=== PATIENT | female | born 1980 | race American Indian/Alaskan Native ===

== ENCOUNTER 2020-11-16 06:41 | Inpatient (IN) | payer MEDICAID ==
[2020-11-16] MEDS ORDERED: HYDROcodone/ACETAMINOPHEN 10-325MG TAB PO ONE (08:19)
[2020-11-16] MEDS ORDERED: IBUPROFEN 600 MG TAB PO ONE (08:19)
--- NOTE | 2020-11-16 08:23 | Emergency Department Report ---
ED Lower Extremity HPI - General Chief Complaint: Extremity Injury, Lower Stated Complaint: RT KNEE PAIN Time Seen by Provider: 11/16/20 08:13 Source: patient Mode of arrival: Ambulatory Limitations: No Limitations - History of Present Illness Initial Comments: 40-year-old female presents to the ER today with complaints of right knee pain and injury. Patient states that she was standing up on a ladder, about 8 feet when she jumped from that height onto the ground. She states that when she landed she felt a sudden pop in her right knee. She states this occurred around 615 this morning. She states that since then she has been having severe pain to the right knee with swelling, some bruising, and inability to bear weight or ambulate secondary to the pain in the knee. She has not taken anything for the pain since the injury occurred. She denies any prior surgery or injury to her knee in the past. She reports no additional symptoms at this time. MD Complaint: knee injury -: Sudden, This morning - Related Data Allergies Allergy/AdvReac Type Severity Reaction Status Date / Time Penicillins AdvReac Swelling Verified 11/16/20 08:06 ED Review of Systems ROS: Stated complaint: RT KNEE PAIN Other details as noted in HPI Comment: All other systems reviewed and negative Constitutional: denies: chills, fever Eyes: denies: eye pain, eye discharge, vision change ENT: denies: ear pain, throat pain Respiratory: denies: cough, shortness of breath, SOB with exertion, SOB at rest, wheezing Cardiovascular: denies: chest pain, palpitations, dyspnea on exertion, edema, syncope, paroxysmal nocturnal dyspnea Gastrointestinal: denies: abdominal pain, nausea, diarrhea, constipation, hematemesis, melena, hematochezia Genitourinary: denies: urgency, dysuria, frequency, hematuria, discharge Musculoskeletal: joint swelling, arthralgia Skin: denies: rash, lesions, change in color, change in hair/nails, pruritus Neurological: abnormal gait. denies: headache, weakness, paresthesias Psychiatric: denies: anxiety, depression, auditory hallucinations, visual hallucinations, homicidal thoughts, suicidal thoughts Hematological/Lymphatic: denies: easy bleeding, easy bruising, swollen glands ED Physical Exam - General Limitations: No Limitations General appearance: alert, in distress (secondary to pain) - Head Head exam: Present: atraumatic, normocephalic, normal inspection - Eye Eye exam: Present: normal appearance, PERRL, EOMI Pupils: Present: normal accommodation - Respiratory Respiratory exam: Absent: respiratory distress - Cardiovascular Cardiovascular Exam: Present: regular rate - Extremities Exam Extremities exam: Present: other (palpable dorsalis pedis pulse right foot. Cap refill nl, No apparent lower leg swelling, or tenderness, no skin pallor or difference in temperature when compared to the left leg) - Expanded Lower Extremity Exam Right Knee exam: Present: tenderness (severe lateral/anterior/medial ), swelling, ecchymosis (mild ), deformity, effusion, pain w/ pronation/supination, pain/laxity with valgus, pain/laxity with varus. Absent: full ROM, full knee extension Neuro vascular tendon exam: Present: no vascular compromise. Absent: abnormal cap refill, motor deficit, sensory deficit, extremity cold to touch, pallor Gait: Positive: not tested/not observed (due to patient severe pain in knee ) - Neurological Exam Neurological exam: Present: alert, oriented X3, CN II-XII intact - Psychiatric Psychiatric exam: Present: normal affect, normal mood - Skin Skin exam: Present: intact ED Course Vital Signs 11/16/20 08:09 Temperature 98.7 F Pulse Rate 81 Respiratory 16 Rate Blood Pressure 138/90 O2 Sat by Pulse 100 Oximetry ED Lower Extremity MDM - Radiology Data Radiology results: report reviewed Patient: CARRINGTON WYATT MR#: [id number] : 1980 Acct:[id number] Age/Sex: 40 / F ADM Date: 11/16/20 Loc: ED Attending Dr: Ordering Physician: SULEMAN BEYER Date of Service: 11/16/20 Procedure(s): XR knee 4+V RT Accession Number(s): [id number] cc: SULEMAN BEYER Fluoro Time In Minutes: Right knee 4 views INDICATION: Injury FINDINGS: There is a comminuted displaced intra-articular fracture within the right proximal tibia. The fracture extends to the metaphysis towards the tibial spine with extension into the joint space. The fracture extends both anteriorly and posteriorly within the proximal tibial metaphysis. Joint effusion is noted. Signer Name: Dannie Vail MD Signed: 11/16/2020 9:01 AM Workstation Name: [email or web address] Transcribed By: CHRISTY Dictated By: MANUEL VAIL MD Electronically Authenticated By: MANUEL VAIL MD Signed Date/Time: 11/16/20900 DD/ 9 TD/TT: - Medical Decision Making 1000: After discussion with Dr Keshia Mina, and Dr Harris, patient will be admitted under hospitalist service and Dr. Harris will consult on patient for surgery. See Dr Mina note for details. Discussed x-ray results, diagnosis and reason for admission with patient. Patient expressed understanding and agree with plan. Patient currently stable. Critical care attestation.: If time is entered above; I have spent that time in minutes in the direct care of this critically ill patient, excluding procedure time. ED Disposition Clinical Impression: Tibial fracture, Internal derangement of knee joint Disposition: 04 [facility]ILITY Is pt being admited?: Yes Condition: Stable
--- NOTE | 2020-11-16 09:05 | XRay Report ---
Right knee 4 views INDICATION: Injury FINDINGS: There is a comminuted displaced intra-articular fracture within the right proximal tibia. T he fracture extends to the metaphysis towards the tibial spine with extension into the joint space. T he fracture extends both anteriorly and posteriorly within the proximal tibial metaphysis. Joint effu adele is noted. Signer Name: Dannie Vail MD Signed: 11/16/2020 9:01 AM Workstation Name: [id number]
[2020-11-16] MEDS ORDERED: ONDANSETRON 4 MG/2 ML INJ IV ONE (10:24)
[2020-11-16] MEDS ORDERED: MORPHINE 4 MG/1 ML INJ IV ONE (10:24)
--- NOTE | 2020-11-16 10:25 | Event Note ---
Face to Face: For this encounter I have reviewed the PA/GRINDING MACHINE OPERATOR documentation, treatment plan, medical decision making, and I had face to face time with this patient. I evaluated patient. Patient has 2+ DP PT pulse in the right lower extremity. She has significant swelling of the knee especially proximal upper leg inferior portion of the knee. I informed her plan of care. Spoke with Dr. Harris who recommended admission. He plans to operate on the knee tomorrow. Spoke with hospitalist physician who accepted patient. Right closed tibial plateau fracture, I suspect ligamentous derangement disruption extremity neurovascular intact
[2020-11-16 11:43] LABS: Alanine Aminotransferase 11 units/L (7-56); Albumin 4.4 g/dL (3.9-5); Blood Urea Nitrogen 13 mg/dL (7-17); Calcium 8.9 mg/dL (8.4-10.2); Hemolysis Index 10
[2020-11-16 11:46] LABS: BUN/Creatinine Ratio 22
--- NOTE | 2020-11-16 11:55 | Cat Scan Report ---
CT lower extremity RT wo con INDICATION / CLINICAL INFORMATION: Severe knee injury derangement tibial plateau fx. TECHNIQUE: CT images of the right knee obtained without intravenous contrast. All CT scans at this location are performed using CT dose reduction for ALARA by means of automated exposure control. COMPARISON: Same-day radiograph. FINDINGS: BONES/JOINT(S): There is an acute comminuted fracture of the right proximal tibia with comminuted imp action fracture of the lateral tibial plateau. There is 5 mm of intra-articular step-off at the poste rior lateral tibial plateau. Comment a fracture involvement of the lateral tibial spine with oblique fracture extension into the medial tibial metaphysis. There is nondisplaced fracture extension throug h the proximal tibial diaphysis. There is nondisplaced fracture involvement of the nonweightbearing p ortion of the anterior medial tibia, though no discrete fracture involvement of the weightbearing nidia face of the medial tibial plateau. Acute mildly displaced, minimally comminuted fracture of the poste rior proximal fibula. The proximal tibiofibular joint is intact. No joint malalignment. Large lipohem arthrosis. MUSCLES / TENDONS: No significant abnormality. SOFT TISSUES: No significant abnormality. IMPRESSION: 1. Acute comminuted displaced intra-articular fracture of the right proximal tibia, as above. 2. Acute mildly displaced proximal fibular fracture. Signer Name: Toby Dominguez MD Signed: 11/16/2020 11:50 AM Workstation Name: [id number]
[2020-11-16] MEDS ORDERED: ONDANSETRON 4 MG/2 ML INJ IV PRN (12:00)
[2020-11-16] MEDS ORDERED: ACETAMINOPHEN 325 MG TAB PO PRN (12:00)
[2020-11-16 12:12] LABS: Basophils # (Auto) 0.1 K/mm3 (0.0-0.1); Basophils % (Auto) 0.9 % (0.0-1.8); Eosinophils # (Auto) 0.4 K/mm3 (0.0-0.4); Eosinophils % (Auto) 3.9 % (0.0-4.3); Hemoglobin 9.3 gm/dl (10.1-14.3); Lymphocytes # (Auto) 1.4 K/mm3 (1.2-5.4); Lymphocytes % (Auto) 13.4 % (13.4-35.0); Mean Corpuscular HGB Conc 31 % (30-34); Monocytes # (Auto) 0.6 K/mm3 (0.0-0.8); Monocytes % (Auto) 5.4 % (0.0-7.3); Platelet Count 463 K/mm3 (140-440); Red Blood Count 4.39 M/mm3 (3.65-5.03); Red Cell Distribution Width 18.2 % (13.2-15.2)
[2020-11-16 12:18] LABS: Mean Corpuscular Volume 68 fl (79-97)
[2020-11-16 12:25] LABS: INR 0.91 (0.87-1.13)
[2020-11-16 12:26] LABS: Partial Thromboplastin Time 27.5 Sec. (24.2-36.6)
--- NOTE | 2020-11-16 13:30 | History and Physical Report ---
History of Present Illness Date of examination: 11/16/20 Date of admission: 11/16/20 10:02 Chief complaint: Right leg pain and swelling History of present illness: Patient is a 40-year-old female with no significant past medical history who presented with leg swelling and pain after fall from a ladder. She reports standing on a ladder and purposely jumping down. She landed on her feet and felt a popping sensation in her right leg. She reports pain with moving and bearing weight on the right lower extremity. X-ray of the right lower extremity showed a comminuted displaced right proximal tibia fracture. CT scan of the same extremity showed an additional mildly displaced proximal fibular fracture. Orthopedic surgery was consulted in the ED. Patient was admitted to medicine service, with plan for surgical intervention in the morning. Past History Past Medical History: No medical history Past Surgical History: Other (Back surgery) Social history: smoking (Half pack of cigarettes per day) Family history: no significant family history Medications and Allergies Allergies Allergy/AdvReac Type Severity Reaction Status Date / Time Penicillins AdvReac Swelling Verified 11/16/20 08:06 Home Medications Medication Instructions Recorded Confirmed Last Taken Type No Known Home Medications [No 11/16/20 11/16/20 Unknown History Reported Home Medications] Active Meds: Active Medications Acetaminophen (Acetaminophen 325 Mg Tab) 650 mg PO Q4H PRN PRN Reason: Pain MILD(1-3)/Fever >100.5/LAU Heparin Sodium (Porcine) (Heparin 5,000 Unit/1 Ml Vial) 5,000 unit SUB-Q Q8HR HARRY Hydromorphone HCl (Hydromorphone 1 Mg/1 Ml Inj) 0.5 mg IV Q3H PRN PRN Reason: Pain , Severe (7-10) Ondansetron HCl (Ondansetron 4 Mg/2 Ml Inj) 4 mg IV Q8H PRN PRN Reason: Nausea And Vomiting Oxycodone/Acetaminophen (Oxycodone /Acetaminophen 5-325mg Tab) 1 tab PO Q6H PRN PRN Reason: Pain, Moderate (4-6) Sodium Chloride (Sodium Chloride 0.9% 10 Ml Flush Syringe) 10 ml IV BID HARRY Sodium Chloride (Sodium Chloride 0.9% 10 Ml Flush Syringe) 10 ml IV PRN PRN PRN Reason: LINE FLUSH Review of Systems All systems: negative Exam - Physical Exam Narrative exam: GENERAL: Well-developed well-nourished. Sitting in chair no acute distress. HEENT: Normocephalic. Atraumatic. CHEST/LUNGS: CTAB on room air HEART/CARDIOVASCULAR: RRR. No murmur, rubs or gallops appreciated. ABDOMEN: +BS. NT/ND. SKIN: No rashes noted. NEURO: No focal motor deficit. Follows all commands. MUSCULOSKELETAL: R knee joint effusion EXTREMITIES: Right lower extremity visibly swollen and in a brace. Left lower extremity without cyanosis, clubbing, or edema. PSYCH: Cooperative. - Constitutional Vitals: Temp Pulse Resp BP Pulse Ox 98.7 F 81 16 138/90 100 11/16/20 08:09 11/16/20 08:09 11/16/20 08:09 11/16/20 08:09 11/16/20 08:09 Results - Labs CBC & Chem 7: 11/16/20 10:24 11/16/20 10:24 Labs: Laboratory Last Values WBC 10.6 K/mm3 (4.5-11.0) 11/16/20 10:24 RBC 4.39 M/mm3 (3.65-5.03) 11/16/20 10:24 Hgb 9.3 gm/dl (10.1-14.3) L 11/16/20 10:24 Hct 30.0 % (30.3-42.9) L 11/16/20 10:24 MCV 68 fl (79-97) L 11/16/20 10:24 MCH 21 pg (28-32) L 11/16/20 10:24 MCHC 31 % (30-34) 11/16/20 10:24 RDW 18.2 % (13.2-15.2) H 11/16/20 10:24 Plt Count 463 K/mm3 (140-440) H 11/16/20 10:24 Lymph % (Auto) 13.4 % (13.4-35.0) 11/16/20 10:24 [place] % (Auto) 5.4 % (0.0-7.3) 11/16/20 10:24 Eos % (Auto) 3.9 % (0.0-4.3) 11/16/20 10:24 Baso % (Auto) 0.9 % (0.0-1.8) 11/16/20 10:24 Lymph # (Auto) 1.4 K/mm3 (1.2-5.4) 11/16/20 10:24 [place] # (Auto) 0.6 K/mm3 (0.0-0.8) 11/16/20 10:24 Eos # (Auto) 0.4 K/mm3 (0.0-0.4) 11/16/20 10:24 Baso # (Auto) 0.1 K/mm3 (0.0-0.1) 11/16/20 10:24 Seg Neutrophils % 76.4 % (40.0-70.0) H 11/16/20 10:24 Seg Neutrophils # 8.1 K/mm3 (1.8-7.7) H 11/16/20 10:24 PT 12.9 Sec. (12.2-14.9) 11/16/20 10:24 INR 0.91 (0.87-1.13) 11/16/20 10:24 APTT 27.5 Sec. (24.2-36.6) 11/16/20 10:24 Sodium 135 mmol/L (137-145) L 11/16/20 10:24 Potassium 4.4 mmol/L (3.6-5.0) 11/16/20 10:24 Chloride 101.0 mmol/L (98-107) 11/16/20 10:24 Carbon Dioxide 25 mmol/L (22-30) 11/16/20 10:24 Anion Gap 13 mmol/L 11/16/20 10:24 BUN 13 mg/dL (7-17) 11/16/20 10:24 Creatinine 0.6 mg/dL (0.6-1.2) 11/16/20 10:24 Estimated GFR > 60 ml/min 11/16/20 10:24 BUN/Creatinine Ratio 22 % 11/16/20 10:24 Glucose 98 mg/dL (65-100) 11/16/20 10:24 Calcium 8.9 mg/dL (8.4-10.2) 11/16/20 10:24 Total Bilirubin 0.20 mg/dL (0.1-1.2) 11/16/20 10:24 AST 16 units/L (5-40) 11/16/20 10:24 ALT 11 units/L (7-56) 11/16/20 10:24 Alkaline Phosphatase 74 units/L (35-129) 11/16/20 10:24 Total Protein 6.9 g/dL (6.3-8.2) 11/16/20 10:24 Albumin 4.4 g/dL (3.9-5) 11/16/20 10:24 Albumin/Globulin Ratio 1.8 % 11/16/20 10:24 - Imaging and Cardiology Imaging and Cardiology: X-ray right femur and CT right lower extremity reviewed. Assessment and Plan Assessment and plan: 40-year-old lady with no significant past medical history, found to have right femur fracture. Currently stable with plans to be taken to the OR tomorrow for repair. #Right tibial fracture #Right fibular fracture -X-ray right lower extremity shows comminuted displaced intra-articular right proximal tibial fracture -CT right lower extremity shows the right tibial fracture with a mildly displaced proximal fibular fracture -Orthopedics consulted, plan for OR tomorrow -N.p.o. at midnight -As needed pain medications -PT consult postoperatively #Microcytic anemia -Patient endorses still menstruating -Iron studies ordered -We will continue to monitor #Tobacco dependence -Currently smokes a half a pack a day -Smoking cessation counseling during today's encounter -Nicotine patch Advance Directives: No VTE prophylaxis?: Chemical Plan of care discussed with patient/family: Yes
[2020-11-16] MEDS: HYDROmorphone 1 MG/1 ML INJ IV PRN ×3 (13:32→21:24)
[2020-11-16] MEDS: HEPARIN 5,000 UNIT/1 ML VIAL SUB-Q SCH ×2 (13:32→21:21)
[2020-11-16 14:11] LABS: HCG Qualitative,Urine Negative (Negative)
--- NOTE | 2020-11-16 14:39 | Anesthesia Consultation ---
Anesthesia Consult and Med Hx Date of service: 11/17/20 - Airway Anesthetic Teeth Evaluation: Good ROM Head & Neck: Adequate Mental/Hyoid Distance: Adequate Mallampati Class: Class I Intubation Access Assessment: Probably Good - Pulmonary Exam CTA: Yes - Cardiac Exam Cardiac Exam: RRR - Pre-Operative Health Status ASA Pre-Surgery Classification: ASA2 Proposed Anesthetic Plan: General - Pulmonary Hx Smoking: No Hx Sleep Apnea: No - Cardiovascular System Hx Hypertension: No Hx Cardia Arrhythmia: No - Central Nervous System Hx Neuromuscular Disorder: No Hx Psychiatric Problems: No - Gastrointestinal Hx Gastroesophageal Reflux Disease: Yes (controlled with OTC medication) - Endocrine Hx Renal Disease: No Hx Liver Disease: No Hx Insulin Dependent Diabetes: No Hx Non-Insulin Dependent Diabetes: No Hx Thyroid Disease: No - Other Systems Hx Alcohol Use: Yes (occasional) Hx Substance Use: No - Additional Comments Anesthesia Medical History Comments: No GAC, No FHAC
[2020-11-16] MEDS: NICOTINE 14 MG/24 HR PATCH TD SCH (18:11)
[2020-11-17] MEDS: HYDROmorphone 1 MG/1 ML INJ IV PRN ×4 (01:01→14:18)
[2020-11-17 04:40] LABS: Basophils # (Auto) 0.1 K/mm3 (0.0-0.1); Basophils % (Auto) 0.9 % (0.0-1.8); Eosinophils # (Auto) 0.5 K/mm3 (0.0-0.4); Eosinophils % (Auto) 4.6 % (0.0-4.3); Hematocrit 27.3 % (30.3-42.9); Hemoglobin 8.7 gm/dl (10.1-14.3); Lymphocytes # (Auto) 1.7 K/mm3 (1.2-5.4); Lymphocytes % (Auto) 17.5 % (13.4-35.0); Mean Corpuscular HGB Conc 32 % (30-34); Mean Corpuscular Volume 68 fl (79-97); Monocytes # (Auto) 0.9 K/mm3 (0.0-0.8); Monocytes % (Auto) 9.5 % (0.0-7.3); Platelet Count 374 K/mm3 (140-440); Red Blood Count 4.01 M/mm3 (3.65-5.03); Red Cell Distribution Width 17.7 % (13.2-15.2)
[2020-11-17 04:47] LABS: INR 0.94 (0.87-1.13)
[2020-11-17 05:03] LABS: Blood Urea Nitrogen 14 mg/dL (7-17); Calcium 8.3 mg/dL (8.4-10.2); Hemolysis Index 1; Iron 15 ug/dL (37-170); Total Iron Binding Capacity 362 mcg/dL (250-450)
[2020-11-17 05:05] LABS: BUN/Creatinine Ratio 28
[2020-11-17] MEDS: HEPARIN 5,000 UNIT/1 ML VIAL SUB-Q SCH ×3 (05:57→21:27)
[2020-11-17] MEDS ORDERED: LIDOCAINE MPF (2%) 20 MG/1 ML VIAL 5 ML ONE (07:27)
[2020-11-17] MEDS ORDERED: propofoL 200 MG/20 ML VIAL IV ONE (07:27)
[2020-11-17] MEDS ORDERED: NEOMY 40 MG/POLYMYXIN B 200,000 UNITS/ML (GU) AMPULE IR ONE ×3 (07:32→11:01)
--- NOTE | 2020-11-17 08:22 | Progress Note ---
Hospitalist Physical - Constitutional Vitals: Temp Pulse Resp BP Pulse Ox 98.5 F 87 20 110/62 98 11/17/20 04:22 11/17/20 04:22 11/17/20 07:35 11/17/20 04:22 11/17/20 04:22 Results - Labs CBC & Chem 7: 11/17/20 04:23 11/17/20 04:23 Labs: Laboratory Last Values WBC 9.9 K/mm3 (4.5-11.0) 11/17/20 04:23 RBC 4.01 M/mm3 (3.65-5.03) 11/17/20 04:23 Hgb 8.7 gm/dl (10.1-14.3) L 11/17/20 04:23 Hct 27.3 % (30.3-42.9) L 11/17/20 04:23 MCV 68 fl (79-97) L 11/17/20 04:23 MCH 22 pg (28-32) L 11/17/20 04:23 MCHC 32 % (30-34) 11/17/20 04:23 RDW 17.7 % (13.2-15.2) H 11/17/20 04:23 Plt Count 374 K/mm3 (140-440) 11/17/20 04:23 Lymph % (Auto) 17.5 % (13.4-35.0) 11/17/20 04:23 [place] % (Auto) 9.5 % (0.0-7.3) H 11/17/20 04:23 Eos % (Auto) 4.6 % (0.0-4.3) H 11/17/20 04:23 Baso % (Auto) 0.9 % (0.0-1.8) 11/17/20 04:23 Lymph # (Auto) 1.7 K/mm3 (1.2-5.4) 11/17/20 04:23 [place] # (Auto) 0.9 K/mm3 (0.0-0.8) H 11/17/20 04:23 Eos # (Auto) 0.5 K/mm3 (0.0-0.4) H 11/17/20 04:23 Baso # (Auto) 0.1 K/mm3 (0.0-0.1) 11/17/20 04:23 Seg Neutrophils % 67.5 % (40.0-70.0) 11/17/20 04:23 Seg Neutrophils # 6.7 K/mm3 (1.8-7.7) 11/17/20 04:23 PT 13.2 Sec. (12.2-14.9) 11/17/20 04:23 INR 0.94 (0.87-1.13) 11/17/20 04:23 APTT 27.5 Sec. (24.2-36.6) 11/16/20 10:24 Sodium 135 mmol/L (137-145) L 11/17/20 04:23 Potassium 4.0 mmol/L (3.6-5.0) 11/17/20 04:23 Chloride 103.2 mmol/L (98-107) 11/17/20 04:23 Carbon Dioxide 26 mmol/L (22-30) 11/17/20 04:23 Anion Gap 10 mmol/L 11/17/20 04:23 BUN 14 mg/dL (7-17) 11/17/20 04:23 Creatinine 0.5 mg/dL (0.6-1.2) L 11/17/20 04:23 Estimated GFR > 60 ml/min 11/17/20 04:23 BUN/Creatinine Ratio 28 % 11/17/20 04:23 Glucose 109 mg/dL (65-100) H 11/17/20 04:23 Calcium 8.3 mg/dL (8.4-10.2) L 11/17/20 04:23 Iron 15 ug/dL (37-170) L 11/17/20 04:23 TIBC 362 mcg/dL (250-450) 11/17/20 04:23 Ferritin 4.2 ng/mL (10.0-200.0) L 11/17/20 04:23 Total Bilirubin 0.20 mg/dL (0.1-1.2) 11/16/20 10:24 AST 16 units/L (5-40) 11/16/20 10:24 ALT 11 units/L (7-56) 11/16/20 10:24 Alkaline Phosphatase 74 units/L (35-129) 11/16/20 10:24 Total Protein 6.9 g/dL (6.3-8.2) 11/16/20 10:24 Albumin 4.4 g/dL (3.9-5) 11/16/20 10:24 Albumin/Globulin Ratio 1.8 % 11/16/20 10:24 Urine HCG, Qual Negative (Negative) 11/16/20 Unknown Bolanos/IV: Voiding Method Bedside Commode Active Medications - Current Medications Current Medications: Generic Name Dose Route Start Last Admin Trade Name Freq PRN Reason Stop Dose Admin Acetaminophen 650 mg 11/16/20 12:00 Acetaminophen 325 Mg Tab PO Q4H PRN Pain MILD(1-3)/Fever >100.5/LAU Heparin Sodium (Porcine) 5,000 unit 11/16/20 14:00 11/17/20 05:57 Heparin 5,000 Unit/1 Ml Vial SUB-Q Not Given Q8HR HARYR Hydromorphone HCl 0.5 mg 11/16/20 11:30 11/17/20 07:05 Hydromorphone 1 Mg/1 Ml Inj IV 0.5 mg Q3H PRN Administration Pain , Severe (7-10) Nicotine 14 mg 11/16/20 14:00 11/16/20 18:11 Nicotine 14 Mg/24 Hr Patch TD 14 mg QDAY HARRY Administration Ondansetron HCl 4 mg 11/16/20 12:00 Ondansetron 4 Mg/2 Ml Inj IV Q8H PRN Nausea And Vomiting Oxycodone/Acetaminophen 1 tab 11/16/20 12:00 Oxycodone /Acetaminophen 5-325mg Tab PO Q6H PRN Pain, Moderate (4-6) Sodium Chloride 10 ml 11/16/20 12:00 11/16/20 21:24 Sodium Chloride 0.9% 10 Ml Flush Syringe IV 10 ml BID HARRY Administration Sodium Chloride 10 ml 11/16/20 12:00 Sodium Chloride 0.9% 10 Ml Flush Syringe IV PRN PRN LINE FLUSH
[2020-11-17] MEDS ORDERED: fentaNYL 100 MCG/2 ML INJ ONE ×2 (08:32→09:01)
[2020-11-17] MEDS ORDERED: ONDANSETRON 4 MG/2 ML INJ IV PRN (08:38)
[2020-11-17] MEDS ORDERED: HYDROmorphone 1 MG/1 ML INJ IV PRN (08:38)
[2020-11-17] MEDS ORDERED: LACTATED RINGERS 1,000 ML ONE ×2 (09:00→10:53)
--- NOTE | 2020-11-17 09:26 | Anesthesia Day of Surgery ---
Anesthesia Day of Surgery - Day of Surgery Patient Examined: Yes Patient H&P Reviewed: Yes Patient is NPO: Yes
[2020-11-17] MEDS ORDERED: VANCOMYCIN 1000 MG INJ ONE (09:29)
[2020-11-17] MEDS ORDERED: SODIUM CHLORIDE 0.9% 250ML 250 ML ONE (09:30)
[2020-11-17] MEDS ORDERED: BUPIVACAINE/PF (0.5%) 5 MG/1 ML 30 ML VIAL INFILTRATI ONE ×3 (09:45→11:07)
[2020-11-17] MEDS ORDERED: TRANEXAMIC ACID 1,000 MG/10 ML ONE (10:33)
[2020-11-17] MEDS ORDERED: SODIUM CHLORIDE 0.9% 50 ML ONE (10:34)
[2020-11-17] MEDS ORDERED: MORPHINE 10 MG/1 ML INJ ONE (10:35)
[2020-11-17] MEDS ORDERED: KETOROLAC 30 MG/1 ML INJ ONE (10:37)
[2020-11-17] MEDS ORDERED: dexAMETHasone 20 MG/5 ML VIAL ONE (10:53)
[2020-11-17] MEDS ORDERED: PHENYLEPHRINE/NS 1,000 MCG/10 ML SYRINGE (OR USE) IV ONE (10:53)
[2020-11-17] MEDS ORDERED: ONDANSETRON 4 MG/2 ML INJ ONE (10:53)
[2020-11-17] MEDS ORDERED: SODIUM CHLORIDE 0.9% IRR 1,500 ML BOTTLE IR ONE ×2 (11:01)
[2020-11-17] MEDS ORDERED: MORPHINE 10 MG/1 ML INJ IM ONE ×2 (11:07)
[2020-11-17] MEDS ORDERED: SODIUM CHLORIDE 0.9% 50 ML IVPB IV ONE ×2 (11:07)
[2020-11-17] MEDS ORDERED: KETOROLAC 30 MG/1 ML INJ IV ONE ×2 (11:07)
--- NOTE | 2020-11-17 11:32 | Consultation ---
History of Present Illness - [facility] Consult date: 11/17/20 Consult reason: joint pain, fracture History of present illness: 40-year-old female who presented to the ED with leg swelling and pain after fall from a ladder. She reports standing on a ladder and purposely jumping down. She landed on her feet and felt a popping sensation in her right leg. She reports pain with moving and bearing weight on the right lower extremity. X-ray of the right lower extremity showed a comminuted displaced right proximal tibia fracture. Past History Past Medical History: No medical history Past Surgical History: Other (Back surgery) Social history: smoking (Half pack of cigarettes per day) Family history: no significant family history Medications and Allergies Allergies Allergy/AdvReac Type Severity Reaction Status Date / Time Penicillins AdvReac Swelling Verified 11/16/20 08:06 Home Medications Medication Instructions Recorded Confirmed Last Taken Type No Known Home Medications [No 11/16/20 11/16/20 Unknown History Reported Home Medications] Active Meds: Active Medications Acetaminophen (Acetaminophen 325 Mg Tab) 650 mg PO Q4H PRN PRN Reason: Pain MILD(1-3)/Fever >100.5/LAU Heparin Sodium (Porcine) (Heparin 5,000 Unit/1 Ml Vial) 5,000 unit SUB-Q Q8HR [facility] Last Admin: 11/17/20 05:57 Dose: Not Given Documented by: Hydromorphone HCl (Hydromorphone 1 Mg/1 Ml Inj) 0.5 mg IV Q3H PRN PRN Reason: Pain , Severe (7-10) Last Admin: 11/17/20 07:05 Dose: 0.5 mg Documented by: Hydromorphone HCl (Hydromorphone 1 Mg/1 Ml Inj) 0.5 mg IV Q10MIN PRN PRN Reason: Pain , Severe (7-10) Stop: 11/17/20 23:00 Nicotine (Nicotine 14 Mg/24 Hr Patch) 14 mg TD QDAY [facility] Last Admin: 11/16/20 18:11 Dose: 14 mg Documented by: Ondansetron HCl (Ondansetron 4 Mg/2 Ml Inj) 4 mg IV Q8H PRN PRN Reason: Nausea And Vomiting Ondansetron HCl (Ondansetron 4 Mg/2 Ml Inj) 4 mg IV ONCE PRN PRN Reason: Nausea And Vomiting Stop: 11/17/20 12:00 Oxycodone/Acetaminophen (Oxycodone /Acetaminophen 5-325mg Tab) 1 tab PO Q6H PRN PRN Reason: Pain, Moderate (4-6) Sodium Chloride (Sodium Chloride 0.9% 10 Ml Flush Syringe) 10 ml IV BID HARRY Last Admin: 11/16/20 21:24 Dose: 10 ml Documented by: Sodium Chloride (Sodium Chloride 0.9% 10 Ml Flush Syringe) 10 ml IV PRN PRN PRN Reason: LINE FLUSH Physical Examination - Physical exam Narrative exam: RLE - knee - moderate swelling, skin intact, tender proximally, decreased passive RoM, distal n/v intact.. Eyes: PERRL ENT: Positive: clear oral mucosa Respiratory effort: normal Respiratory: bilateral: CTA Rhythm: regular Heart Sounds: Positive: S1 & S2 General gastrointestinal: Positive: soft, non-tender, non-distended, normal bowel sounds Integumentary: clear, warm, dry Neurologic: Positive: CNII-XII intact, moves all extremities, gait normal. Negative: focal deficits - Cervical Spine Neck pain: none Tenderness with palpation: none Full ROM: yes ROM: flexion: normal ROM: extension: normal ROM: rotation right: normal ROM: rotation left: normal ROM: lateral flexion right: normal ROM: lateral flexion left: normal - Lumbar Spine Back pain: none Tenderness with palpation: none Appearance: normal Full ROM: yes ROM: flexion: normal ROM: extension: normal ROM: rotation right: normal ROM: rotation left: normal ROM: lateral flexion right: normal ROM: lateral flexion left: normal Assessment and Plan Displaced Right Tibial Plateau fracture Recommendation - ORIF right proximal tibia
--- NOTE | 2020-11-17 11:35 | Procedure Note ---
Date of procedure: 11/17/20 Pre-op diagnosis: Displaced right tibial plateau fracture Post-op diagnosis: same Procedure: Closed reduction insertion locked medial tibial plate right tibial plateau Procedure The patient was brought to the OR on the hospital bed she was then transferred onto the OR table supine following this she was given general anesthesia and intubated next the right lower extremity was prepped and draped in the usual sterile manner. A timeout procedure was done to identify the patient and the correct operative site using C arm fluoroscopy the patient's right leg was exsanguinated followed by inflation of the pneumatic tourniquet to 300 mmHg again using C-arm visualization guide guidewire was placed along the proximal aspect of the tibia and under centimeters direction the guidewire was inserted from the lateral cortex into the medial tibial plateau this was done to stabilize the fracture next a transverse incision was made parallel to the joint line approximately 1 cm distal this is taken down sharply through skin subcu onto the periosteum next a periosteal elevator was used to strip the soft tissue from the bone and surrounding subcutaneous tissue to create a tunnel for medial locked plate next a 10 hole 4.5 locked medial tibial plate was applied to the proximal tibia under C-arm visualization and secured by way of a K wire next the plate was stabilized using 4.5 locked screws distally this was followed by sequential reaming and tapping screws proximally as well as along the plate itself AP lateral views were obtained showing good reduction of the fracture and placement of the plate and screws the wound was then copiously irrigated and was closed in a standard routine fashion the patient tolerated the procedure there were no complications Anesthesia: GETA Surgeon: CHANTELL BECK Estimated blood loss: 50-100ml Pathology: none Condition: stable Disposition: PACU
[2020-11-17] MEDS ORDERED: KETOROLAC 30 MG/1 ML INJ IV PRN (11:36)
[2020-11-17] MEDS ORDERED: MORPHINE 4 MG/1 ML INJ IV PRN (11:36)
[2020-11-17] MEDS ORDERED: MIDAZOLAM 2 MG/2 ML INJ ONE (11:44)
[2020-11-17] MEDS ORDERED: dexAMETHasone 4 MG/ML VIAL ONE (11:45)
[2020-11-17] MEDS ORDERED: BUPIVACAINE/PF (0.25%) 2.5 MG/ML 30 ML VIAL INFILTRATI ONE (11:45)
[2020-11-17] MEDS ORDERED: MIDAZOLAM 2 MG/2 ML INJ IV NR (11:45)
--- NOTE | 2020-11-17 12:34 | Progress Note ---
Regional Anesthesia Block - Regional Anesthesia Block Start Time: 11:49 Stop Time: 12:00 Performed By:: JOHAN LANGLEY Procedure: [Right] Ultrasound Guided Adductor Canal Block Regional block performed post operatively in PACU for poorly controlled surgical pain. Pt IDd, consent previously obtained, time-out performed. VS monitored + O2 via FM. Sedation/analgesia already given per PACU orders (see MAR). Femoral artery and neurovascular bundle in the adductor canal identified with ultrasound. Skin prepped with chloraprep and anesthetized with 3cc 1% lidocaine. Needle advance in plane with ultrasound. [15]cc [0.25]% bupivacaine + [4]mg decadron injected incrementally with negative aspiration. Pt tolerated procedure well, no immediate complications noted. Pain better controlled after block. Print function unavailable for printing of ultrasound imaging.
--- NOTE | 2020-11-17 12:59 | Post Anesthesia Evaluation ---
- Post Anesthesia Evaluation Patient Participated: Yes Airway Patent: Yes Stable Respiratory Function: Yes Nausea/Vomiting: No Temp > 96.8F: Yes Pain Manageable: Yes Adequeate Hydration: Yes Anesthesia Complications: No Block Receding Appropriately: Yes (block placed in PACU (see procedure note). Pain well controlled.)
--- NOTE | 2020-11-17 14:10 | Progress Note ---
Assessment and Plan Assessment and plan: 40-year-old lady with no significant past medical history, found to have right tibial fracture. Currently stable with plans to be taken to the OR tomorrow for repair. #Right tibial fracture -X-ray right lower extremity shows comminuted displaced intra-articular right proximal tibial fracture -s/p Closed reduction of R tibial fracture -Orthopedics following -As needed pain medications -PT consult postoperatively #Iron deficiency anemia -Patient endorses still menstruating -Iron studies: Fe 15, TIBC 362, Ferritin 4.2 -will start iron supplementation #Tobacco dependence -Currently smokes a half a pack a day -Smoking cessation counseling during today's encounter -Nicotine patch Disposition Plan: Pending physical therapy eval Total Time Spent with Patient (Minutes): 20 minutes History Interval history: Patient was taken to the OR today. Hospitalist Physical - Physical exam Narrative exam: GENERAL: Well-developed well-nourished. Sitting in chair no acute distress. HEENT: Normocephalic. Atraumatic. CHEST/LUNGS: CTAB on room air HEART/CARDIOVASCULAR: RRR. No murmur, rubs or gallops appreciated. ABDOMEN: +BS. NT/ND. SKIN: No rashes noted. NEURO: No focal motor deficit. Follows all commands. MUSCULOSKELETAL: R knee joint effusion EXTREMITIES: Right lower extremity visibly swollen and in a brace. Left lower extremity without cyanosis, clubbing, or edema. PSYCH: Cooperative. - Constitutional Vitals: Temp Pulse Resp BP Pulse Ox 98.2 F 100 H 14 118/74 100 11/17/20 13:21 11/17/20 13:21 11/17/20 13:21 11/17/20 13:21 11/17/20 13:21 Results - Labs CBC & Chem 7: 11/17/20 04:23 11/17/20 04:23 Labs: Laboratory Last Values WBC 9.9 K/mm3 (4.5-11.0) 11/17/20 04:23 RBC 4.01 M/mm3 (3.65-5.03) 11/17/20 04:23 Hgb 8.7 gm/dl (10.1-14.3) L 11/17/20 04:23 Hct 27.3 % (30.3-42.9) L 11/17/20 04:23 MCV 68 fl (79-97) L 11/17/20 04:23 MCH 22 pg (28-32) L 11/17/20 04:23 MCHC 32 % (30-34) 11/17/20 04:23 RDW 17.7 % (13.2-15.2) H 11/17/20 04:23 Plt Count 374 K/mm3 (140-440) 11/17/20 04:23 Lymph % (Auto) 17.5 % (13.4-35.0) 11/17/20 04:23 [place] % (Auto) 9.5 % (0.0-7.3) H 11/17/20 04:23 Eos % (Auto) 4.6 % (0.0-4.3) H 11/17/20 04:23 Baso % (Auto) 0.9 % (0.0-1.8) 11/17/20 04:23 Lymph # (Auto) 1.7 K/mm3 (1.2-5.4) 11/17/20 04:23 [place] # (Auto) 0.9 K/mm3 (0.0-0.8) H 11/17/20 04:23 Eos # (Auto) 0.5 K/mm3 (0.0-0.4) H 11/17/20 04:23 Baso # (Auto) 0.1 K/mm3 (0.0-0.1) 11/17/20 04:23 Seg Neutrophils % 67.5 % (40.0-70.0) 11/17/20 04:23 Seg Neutrophils # 6.7 K/mm3 (1.8-7.7) 11/17/20 04:23 PT 13.2 Sec. (12.2-14.9) 11/17/20 04:23 INR 0.94 (0.87-1.13) 11/17/20 04:23 APTT 27.5 Sec. (24.2-36.6) 11/16/20 10:24 Sodium 135 mmol/L (137-145) L 11/17/20 04:23 Potassium 4.0 mmol/L (3.6-5.0) 11/17/20 04:23 Chloride 103.2 mmol/L (98-107) 11/17/20 04:23 Carbon Dioxide 26 mmol/L (22-30) 11/17/20 04:23 Anion Gap 10 mmol/L 11/17/20 04:23 BUN 14 mg/dL (7-17) 11/17/20 04:23 Creatinine 0.5 mg/dL (0.6-1.2) L 11/17/20 04:23 Estimated GFR > 60 ml/min 11/17/20 04:23 BUN/Creatinine Ratio 28 % 11/17/20 04:23 Glucose 109 mg/dL (65-100) H 11/17/20 04:23 Calcium 8.3 mg/dL (8.4-10.2) L 11/17/20 04:23 Iron 15 ug/dL (37-170) L 11/17/20 04:23 TIBC 362 mcg/dL (250-450) 11/17/20 04:23 Ferritin 4.2 ng/mL (10.0-200.0) L 11/17/20 04:23 Total Bilirubin 0.20 mg/dL (0.1-1.2) 11/16/20 10:24 AST 16 units/L (5-40) 11/16/20 10:24 ALT 11 units/L (7-56) 11/16/20 10:24 Alkaline Phosphatase 74 units/L (35-129) 11/16/20 10:24 Total Protein 6.9 g/dL (6.3-8.2) 11/16/20 10:24 Albumin 4.4 g/dL (3.9-5) 11/16/20 10:24 Albumin/Globulin Ratio 1.8 % 11/16/20 10:24 Urine HCG, Qual Negative (Negative) 11/16/20 Unknown Bloanos/IV: Voiding Method Bedside Commode Active Medications - Current Medications Current Medications: Generic Name Dose Route Start Last Admin Trade Name Freq PRN Reason Stop Dose Admin Acetaminophen 650 mg 11/16/20 12:00 Acetaminophen 325 Mg Tab PO Q4H PRN Pain MILD(1-3)/Fever >100.5/LAU Heparin Sodium (Porcine) 5,000 unit 11/16/20 14:00 11/17/20 05:57 Heparin 5,000 Unit/1 Ml Vial SUB-Q Not Given Q8HR HARRY Hydromorphone HCl 0.5 mg 11/16/20 11:30 11/17/20 07:05 Hydromorphone 1 Mg/1 Ml Inj IV 0.5 mg Q3H PRN Administration Pain , Severe (7-10) Hydromorphone HCl 0.5 mg 11/17/20 08:38 11/17/20 11:42 Hydromorphone 1 Mg/1 Ml Inj IV 11/17/20 23:00 0.5 mg Q10MIN PRN Administration Pain , Severe (7-10) Ketorolac Tromethamine 15 mg 11/17/20 11:36 Ketorolac 30 Mg/1 Ml Inj IV 11/22/20 11:35 Q6H PRN Pain, Moderate (4-6) Midazolam HCl 1 mg 11/17/20 11:45 11/17/20 11:45 Midazolam 2 Mg/2 Ml Inj IV 11/17/20 20:00 1 mg ONCE NR Administration Morphine Sulfate 4 mg 11/17/20 11:36 Morphine 4 Mg/1 Ml Inj IV Q4H PRN Pain , Severe (7-10) Nicotine 14 mg 11/16/20 14:00 11/16/20 18:11 Nicotine 14 Mg/24 Hr Patch TD 14 mg QDAY HARRY Administration Ondansetron HCl 4 mg 11/16/20 12:00 Ondansetron 4 Mg/2 Ml Inj IV Q8H PRN Nausea And Vomiting Oxycodone/Acetaminophen 1 tab 11/16/20 12:00 Oxycodone /Acetaminophen 5-325mg Tab PO Q6H PRN Pain, Moderate (4-6) Sodium Chloride 10 ml 11/16/20 12:00 11/17/20 13:29 Sodium Chloride 0.9% 10 Ml Flush Syringe IV Not Given BID HARRY Sodium Chloride 10 ml 11/16/20 12:00 Sodium Chloride 0.9% 10 Ml Flush Syringe IV PRN PRN LINE FLUSH Sodium Chloride 10 ml 11/17/20 12:00 Sodium Chloride 0.9% 10 Ml Flush Syringe IV 11/19/20 11:59 PRN NR
[2020-11-17] MEDS: NICOTINE 14 MG/24 HR PATCH TD SCH (14:19)
--- NOTE | 2020-11-17 14:50 | XRay Report ---
XR tibia fibula 2V RT Technique: Intraoperative fluoroscopic guidance was provided. Fluoroscopy time: 1 minute 22 seconds. Fluoroscopy images: 4. Findings/Impression: Intraoperative fluoroscopic guidance for ORIF of right tibial plateau fracture. Please see procedure report for further details. Signer Name: Toby Dominguez MD Signed: 11/17/2020 2:45 PM Workstation Name: [id number]
[2020-11-18] MEDS: oxyCODONE /ACETAMINOPHEN 5-325MG TAB PO PRN ×2 (02:16→15:03)
[2020-11-18 05:01] VITALS: BP 116/67
[2020-11-18] MEDS: HEPARIN 5,000 UNIT/1 ML VIAL SUB-Q SCH ×2 (06:27→15:04)
[2020-11-18] MEDS: NICOTINE 14 MG/24 HR PATCH TD SCH (09:55)
[2020-11-18] MEDS ORDERED: FERROUS SULFATE 325 MG TAB PO SCH (10:00)
--- NOTE | 2020-11-18 12:41 | Discharge Summary ---
Providers - Providers Date of Admission: 11/16/20 10:02 Date of discharge: 11/17/20 Attending physician: EMMA LIU MD 11/17/20 11:37 Physical Therapy Evaluation and Treat [CONS] Routine Comment: Reason For Exam: Gait training, range of motion exercises Weight bearing status?: Full wt bearing Assistive devices?: Yes If so list: Walker Primary care physician: WAIST CUTTER Hospitalization Condition: Stable Disposition: 30 STILL A PATIENT Exam - Constitutional Vitals: Temp Pulse Resp BP Pulse Ox 98.6 F 91 H 18 116/67 96 11/18/20 04:29 11/18/20 04:29 11/18/20 10:00 11/18/20 04:29 11/18/20 10:00 Plan Follow up with: MERON ESCOBEDO MD [Primary Care Provider] - 7 Days CHANTELL BECK MD [Staff Physician] - 10 Days Prescriptions: Ferrous Sulfate [Feosol 325 MG tab] 325 mg PO QDAY 30 Days #30 tablet HYDROcodone/APAP 7.5-325 [[place] 7.5/325] 1 each PO Q6HR PRN 7 Days #28 tablet PRN Reason: Pain
== END 2020-11-18 18:56 | disposition home or self-care (01) | DRG 494 ==
LOC: ED 06:41 → 3A 10:02
PROVIDERS: ADMIT Internal Medicine; ATTEND Student in an Organized Health Care Education/Training Program
PROC: 0QSG34Z Reposition Right Tibia with Internal Fixation Device, Percutaneous Approach (ICD-10-PCS; principal; 2020-11-17)
PROC: 3E0T3BZ Introduction of Anesthetic Agent into Peripheral Nerves and Plexi, Percutaneous Approach (ICD-10-PCS; 2020-11-17)
PROC: 3E0T33Z Introduction of Anti-inflammatory into Peripheral Nerves and Plexi, Percutaneous Approach (ICD-10-PCS; 2020-11-17)
DX: S82.141A Displaced bicondylar fracture of right tibia, initial encounter for closed fracture (principal); D50.9 Iron deficiency anemia, unspecified; F17.210 Nicotine dependence, cigarettes, uncomplicated; S82.491A Other fracture of shaft of right fibula, initial encounter for closed fracture; W11.XXXA Fall on and from ladder, initial encounter; Y93.89 Activity, other specified; Y92.89 Other specified places as the place of occurrence of the external cause; Y99.8 Other external cause status; Z88.0 Allergy status to penicillin; Z71.6 Tobacco abuse counseling; Z79.899 Other long term (current) drug therapy
CPT/HCPCS: 36415; 80048; 80053; 81025; 82728; 83550; 85025; 85610; 85730; G0378; C1713; J1100; J1170; J1644; J1885; J2250; J2270; J2370; J2405; J2704; J3010; J3370; J7050; J7120

== ENCOUNTER 2021-01-27 10:46 | Outpatient (CLI) | payer MEDICAID ==
--- NOTE | 2021-01-27 11:38 | XRay Report ---
Right knee 3 views INDICATION: Pain FINDINGS: Postoperative change with proximal tibial plate. There is identified fracture appears to be healing with areas of sclerosis along the fracture lines in the proximal tibia. Mild irregularity in the tibial spine is again seen. Patellofemoral degenerative change. Signer Name: Dannie Vail MD Signed: 01/27/2021 11:34 AM Workstation Name: [id number]
== END 2021-01-27 10:47 | disposition home or self-care (01) ==
LOC: XRAY 10:46
PROVIDERS: ATTEND Orthopaedic Surgery
DX: S82.141A Displaced bicondylar fracture of right tibia, initial encounter for closed fracture (principal); M17.11 Unilateral primary osteoarthritis, right knee; X58.XXXA Exposure to other specified factors, initial encounter; Y93.89 Activity, other specified; Y92.89 Other specified places as the place of occurrence of the external cause; Y99.8 Other external cause status

== ENCOUNTER 2021-05-16 13:43 | Outpatient (CLI) | payer MEDICAID ==
--- NOTE | 2021-05-16 16:41 | XRay Report ---
RIGHT KNEE 3 VIEW(S) INDICATION / CLINICAL INFORMATION: pain in right knee COMPARISON: 01/27/2021 FINDINGS: BONES / JOINT(S): No acute fracture or dislocation. There is a screw-plate device in the proximal tib ia. No significant arthritis. SOFT TISSUES: No significant abnormality. ADDITIONAL FINDINGS: None. Signer Name: Lee Butler MD Signed: 05/16/2021 4:37 PM Workstation Name: [id number]
== END 2021-05-16 13:44 | disposition home or self-care (01) ==
LOC: XRAY 13:43
PROVIDERS: ATTEND Orthopaedic Surgery
DX: S82.141A Displaced bicondylar fracture of right tibia, initial encounter for closed fracture (principal); X58.XXXA Exposure to other specified factors, initial encounter; Y93.89 Activity, other specified; Y92.89 Other specified places as the place of occurrence of the external cause; Y99.8 Other external cause status